=== PATIENT | female | born 1955 | race Two or more races ===

== ENCOUNTER 2020-03-27 12:58 | Emergency (ER) | payer OTHER ==
[~2020-03-27] VITALS: Ht 167.6 cm; Wt 89.8 kg
[~2020-03-27 12:58] MED LIST: HYZAAR 100-121 UDTAB; LANTUS100 U/ML; [UNRECOGNIZED DRUG - OTHER]
[2020-03-27] MEDS ORDERED: JANUVIA100 MG PO (13:14)
[2020-03-27] MEDS ORDERED: XARELTO10 MG PO (13:15)
[2020-03-27] MEDS ORDERED: HYZAAR 100-251 EACH PO (13:15)
== END 2020-03-27 22:56 | disposition home or self-care (01) ==
LOC: ER 12:58
DX: R16.0 Hepatomegaly, not elsewhere classified (principal); N28.1 Cyst of kidney, acquired; R10.32 Left lower quadrant pain

== ENCOUNTER 2022-12-21 11:05 | Emergency (ER) | payer OTHER ==
[~2022-12-21] VITALS: Ht 167.6 cm; Wt 89.4 kg
[~2022-12-21 11:05] MED LIST changes: +HYZAAR 100-251 EACH PO; +JANUVIA100 MG PO; +XARELTO10 MG PO
[2022-12-21] MEDS ORDERED: PEPCID AC20 MG PO (17:47)
[2022-12-21] MEDS ORDERED: LEVSIN/SL0.125 MG SL (17:47)
== END 2022-12-21 17:56 | disposition home or self-care (01) ==
LOC: ER 11:05
DX: R10.9 Unspecified abdominal pain (principal); K57.30 Diverticulosis of large intestine without perforation or abscess without bleeding; K57.32 Diverticulitis of large intestine without perforation or abscess without bleeding; Z88.8 Allergy status to other drugs, medicaments and biological substances; E11.9 Type 2 diabetes mellitus without complications; Z79.4 Long term (current) use of insulin; I10 Essential (primary) hypertension; E03.9 Hypothyroidism, unspecified; Z86.72 Personal history of thrombophlebitis